=== PATIENT | male | born 1965 | race Caucasian/White ===

== ENCOUNTER 2017-11-28 15:26 | Emergency (ER) | payer OTHER ==
[~2017-11-28] VITALS: Ht 180.3 cm; Wt 79.4 kg
[~2017-11-28 15:26] MED LIST: ASPIR 8181 MG PO; ATORVASTATIN CA40 MG PO; CLOPIDOGREL75 MG PO; METOPROLOL TART25 MG PO; NITROGLYCERIN0.4 MG SUBLING; PRILOSEC 20 MG20 MG PO
[2017-11-28] MEDS ORDERED: WELLBUTRIN XL150 MG PO (15:38)
[2017-11-28 15:47] LABS: ABSOLUTE BASOPHILS 0.1 thou/uL (0.0-0.2); ABSOLUTE EOSINOPHILS 0.5 thou/uL (0.0-0.7); ABSOLUTE LYMPHOCYTES 3.2 thou/uL (0.8-5.3); ABSOLUTE MONOCYTES 0.8 thou/uL (0.0-1.2); ABSOLUTE NEUTROPHILS 6.2 thou/uL (1.6-8.1); BASOPHILS 1.1 %; EOSINOPHILS 4.8 %; HEMATOCRIT 39.3 % (42.0-52.0); HEMOGLOBIN 13.5 gm/dL (14.0-18.0); LYMPHOCYTES 29.8 %; MCH 32.8 pg (26.0-34.0); MCHC 34.5 g/dL (28.0-37.0); MCV 95.2 fL (80.0-100.0); MONOCYTES 7.1 %; MPV 8.5 fl. (7.2-11.1); NUCLEATED RBCS 0 /100WBC; PLATELET COUNT* 217 thou/uL (150-400); POLYS 57.2 %; RBC 4.13 mil/uL (4.50-6.00); RDW-CV 14.4 % (10.5-14.5); WBC 10.8 thou/uL (4.0-11.0)
[2017-11-28 15:58] LABS: ANION GAP 8 mmol/L (7-16); BUN 12 mg/dL (7-18); CALCIUM 8.1 mg/dL (8.5-10.1); CHLORIDE 108 mmol/L (98-107); CO2 29 mmol/L (21-32); CREATININE 0.9 mg/dL (0.6-1.3); GLUCOSE 157 mg/dL (70-99); POTASSIUM 3.6 mmol/L (3.5-5.1); SODIUM 145 mmol/L (136-145)
[2017-11-28 15:59] LABS: INR 1.1; PROTIME 10.5 Seconds (9.20-11.50)
[2017-11-28 16:21] LABS: ALBUMIN 3.3 g/dL (3.4-5.0); ALKALINE PHOSPHATASE 78 U/L (46-116); CK-MB MASS 1.6 ng/mL (<0.5-3.6); LIPASE 108 U/L (73-393); NT-PRO BRAIN NAT PEPTIDE 74 pg/mL (<300); SGOT 23 U/L (15-37); SGPT 30 U/L (30-65); TOTAL BILIRUBIN 0.3 mg/dL (<0.1-1.0); TOTAL PROTEIN 6.7 g/dL (6.4-8.2); TROPONIN-I LEVEL <0.06 ng/mL (<0.06)
[2017-11-28 18:19] VITALS: BP 100/67
--- NOTE | 2017-11-29 18:04 | EKG ---
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
--- NOTE | 2017-11-29 18:04 | EKG ---
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
== END 2017-11-28 18:21 | disposition home or self-care (01) ==
LOC: M.ERS 15:26
PROVIDERS: Family Medicine
DX: R07.89 Other chest pain (principal)

== ENCOUNTER → 2021-01-23 | Outpatient (CLI) | payer OTHER ==
[~2021-01-23] MED LIST changes: +WELLBUTRIN XL150 MG PO
--- NOTE | 2021-02-10 08:18 | PF ---
[address] [address] PULMONARY FUNCTION REPORT Name: JENS HERNANDEZ Room: [facility].#: [id number] Admission: 01/23/21 Attend Phys: Garry Nieves MD Discharge: Date of : 65 Report #: [id number] THIS REPORT FOR: cc: Rodolfo Nelson Vincent R. DO Pervez, Adeel MD ~ DOC #: [id number] Rico Bruno MD DATE OF VISIT: 01/23/2021 The FEV1/FVC ratio is decreased to 60% with an FVC close to the upper limit of normal range at 118%. The FEV1 is normal at 92%. The FEF 25-75 is decreased to 46%. There is no increase in any of these values after the administration of a bronchodilator. The patient's FEV1 is noted to be 3.70 liters. This does not increase after the administration of a bronchodilator. The total lung capacity is normal, but close to the upper limit of normal range at 113%, residual volume is normal at 96%. The DLCO as adjusted for hemoglobin is decreased to 53%. IMPRESSION: 1. There is obstruction present by ATS criteria. This will be mild obstruction due to a marked reduction in FEV1, FVC ratio. The forced vital capacity being close to the upper limit of normal range. I suspect that the obstruction may have been underestimated in this test. There is no evidence of reversibility. 2. The lung volumes are normal. 3. The DLCO as adjusted for hemoglobin is decreased to 53%. Rico Bruno MD AP/PAR <ELECTRONICALLY SIGNED> By: Rico Bruno MD 02/10/2118 51 0139Airvin Bruno MD /nt
== END ==
LOC: M.PUL 09:30
PROVIDERS: ATTEND Internal Medicine Cardiovascular Disease
DX: R94.2 Abnormal results of pulmonary function studies (principal); R06.00 Dyspnea, unspecified